=== PATIENT | female | born 1955 | race Caucasian/White ===

== ENCOUNTER 2018-04-07 06:41 | Emergency (ER) | payer MEDICAID ==
[~2018-04-07] VITALS: Ht 152.4 cm; Wt 74.5 kg
[2018-04-07] MEDS ORDERED: BUPIVACAINE 0.25% ONE (07:17)
[2018-04-07] MEDS ORDERED: BUPIVACAINE 0.25% INFIL ONE (07:30)
[2018-04-07] MEDS ORDERED: IBUPROFEN 200 MG TABLET ONE (07:51)
[2018-04-07] MEDS ORDERED: CLINDAMYCIN 150 MG CAPSULE ONE (07:51)
[2018-04-07] MEDS ORDERED: IBUPROFEN 200 MG TABLET PO ONE (08:00)
[2018-04-07] MEDS ORDERED: CLINDAMYCIN 300 MG CAPSULE PO ONE (08:00)
[2018-04-07 09:58] VITALS: BP 124/60
== END 2018-04-07 11:56 | disposition home or self-care (01) ==
LOC: ED 09:00
DX: K04.7 Periapical abscess without sinus (principal); E03.9 Hypothyroidism, unspecified; F32.9 Major depressive disorder, single episode, unspecified; Z59.0 Homelessness
CPT/HCPCS: 41800; 99283; J3490